=== PATIENT | male | born 1965 | race Two or more races ===

== ENCOUNTER 2016-07-14 10:39 | Inpatient (IN) | payer MEDICAID ==
[~2016-07-14] VITALS: Ht 172.7 cm; Wt 68.3 kg
[2016-07-14 14:19] LABS: Basophils # (auto) 0 uL; Basophils % (auto) 0.4 % (0.0-2.0); Eosinophils # (auto) 0.1 uL; Eosinophils % (auto) 1.8 % (0.0-7.0); Hematocrit 41.1 % (41.0-53.0); Hemoglobin 14.1 g/dL (13.5-17.5); Lymphocytes % (auto) 17.5 % (10.0-50.0); Mean Corpuscular Hgb Conc. 34.4 g/dL (32.0-36.0); Mean Corpuscular Volume 84.1 fL (80.0-100.0); Mean Platelet Volume 8.4 fL (7.4-10.4); Monocytes # (auto) 0.4 uL; Monocytes % (auto) 6.9 % (0.0-12.0); Neutrophils # (auto) 4.4 uL; Neutrophils % (auto) 73.4 % (37.0-80.0); Platelet Count (auto) 286 10^3/uL (140-450); Red Cell Distribution Width 15.5 % (11.6-16.0)
[2016-07-14 14:31] LABS: INR 0.99 (0.9-1.15); Partial Thromboplastin Time 29.9 sec (22.64-33.71); Prothrombin Time 10.8 sec (9.37-12.3)
[2016-07-14 14:39] LABS: Albumin 3.8 g/dL (3.4-5.0); BUN/Creatinine Ratio 17.2; Bilirubin, Total 0.4 mg/dL (0.2-1.0); Calcium 8.6 mg/dL (8.5-10.1); Total Protein 8.6 g/dL (6.4-8.2)
[2016-07-14 15:18] LABS: Potassium 2.6 mmol/L (3.5-5.1)
[2016-07-14] MEDS ORDERED: POTASSIUM CHL 20 Meq TABLET PO ONE (15:30)
[2016-07-14] MEDS ORDERED: POTASSIUM CHL 20MEQ/100ML 100 ML IV SCH (16:00)
[2016-07-14] MEDS ORDERED: SOD CHL 0.9%/ KCL 20MEQ 1,000 ML IV ONE ×2 (16:30→17:00)
[2016-07-14 16:42] LABS: Urine Bilirubin Negative (Negative); Urine Blood Negative /uL (Negative); Urine Color Yellow (Yellow); Urine Glucose Normal (Normal); Urine Hyaline Cast FEW /lpf (0 - 2); Urine Ketone Negative (Negative); Urine Nitrite Negative (Negative); Urine RBC <1 /hpf (0 - 3); Urine Urobilinogen Normal (Negative); Urine pH 6.5 (5.0-8.0)
[2016-07-14] MEDS ORDERED: SODIUM CHLORIDE 0.9% 1,000 ML IV ONE (17:15)
[2016-07-14] MEDS ORDERED: POTASSIUM CHL 20MEQ/100ML 100 ML IV ONE (17:15)
[2016-07-14] MEDS ORDERED: MORPHINE SULF INJ 2 MG/ML SYRINGE 1ML IV ONE (17:15)
[2016-07-14] MEDS ORDERED: ONDANSETRON HCL 4 MG/2 ML VIAL IV ONE (17:15)
[2016-07-14] MEDS ORDERED: MORPHINE SULF INJ 2 MG/ML SYRINGE 1ML IV PRN (18:15)
[2016-07-14] MEDS ORDERED: HYDROcodone-ACET 5/325MG TAB PO PRN (18:15)
[2016-07-14] MEDS ORDERED: ONDANSETRON HCL 4 MG/2 ML VIAL IV PRN (18:15)
[2016-07-14] MEDS ORDERED: DOCUSATE SOD 100 MG CAP PO PRN (18:15)
[2016-07-14] MEDS ORDERED: TEMAZEPAM 15 MG CAP PO PRN (18:15)
[2016-07-14] MEDS ORDERED: cefTRIAXone 1GM/50ML D5W 50 ML IV ONE (18:45)
[2016-07-14] MEDS ORDERED: NYSTATIN (MOUTH-THROAT) 500,000 UNITS/5 ML SUSP MT ONE (18:45)
[2016-07-14] MEDS ORDERED: diphenhdrAMINE HCL 50 MG/1 ML VL IV ONE (20:15)
[2016-07-14] MEDS: SODIUM CHLOR 0.9% PF (SALINE LOCK) 10ML VIAL IV SCH (20:36)
[2016-07-14 21:05] VITALS: BP 119/75
[2016-07-14] MEDS: NYSTATIN (MOUTH-THROAT) 500,000 UNITS/5 ML SUSP MT SCH (21:48)
[2016-07-14] MEDS: FAMOTIDINE 20 MG TAB PO SCH (21:48)
[2016-07-14] MEDS: metroNIDAZOLE 500MG/100ML 100 ML IV SCH (23:54)
[2016-07-15 05:00] VITALS: BP 123/75
[2016-07-15] MEDS: SODIUM CHLOR 0.9% PF (SALINE LOCK) 10ML VIAL IV SCH ×3 (05:15→21:53)
[2016-07-15] MEDS: metroNIDAZOLE 500MG/100ML 100 ML IV SCH ×3 (05:16→17:48)
[2016-07-15] MEDS: NYSTATIN (MOUTH-THROAT) 500,000 UNITS/5 ML SUSP MT SCH ×4 (05:16→21:53)
[2016-07-15 06:13] LABS: Basophils # (auto) 0 uL; Basophils % (auto) 0.4 % (0.0-2.0); Eosinophils # (auto) 0.1 uL; Hematocrit 34.9 % (41.0-53.0); Hemoglobin 11.9 g/dL (13.5-17.5); Lymphocytes # (auto) 0.8 uL; Lymphocytes % (auto) 23.1 % (10.0-50.0); Mean Corpuscular Hemoglobin 28.7 pg (28.0-32.0); Mean Corpuscular Hgb Conc. 34.2 g/dL (32.0-36.0); Mean Corpuscular Volume 84.1 fL (80.0-100.0); Mean Platelet Volume 8.7 fL (7.4-10.4); Monocytes # (auto) 0.3 uL; Monocytes % (auto) 9.7 % (0.0-12.0); Neutrophils # (auto) 2.2 uL; Neutrophils % (auto) 63.8 % (37.0-80.0); Platelet Count (auto) 233 10^3/uL (140-450); Red Cell Distribution Width 15.6 % (11.6-16.0); White Blood Cell 3.5 10^3/uL (4.4-10.8)
[2016-07-15 06:34] LABS: Albumin 2.9 g/dL (3.4-5.0); Calcium 7.7 mg/dL (8.5-10.1); Potassium 3.1 mmol/L (3.5-5.1)
[2016-07-15 06:40] LABS: Bilirubin, Total 0.2 mg/dL (0.2-1.0); Total Protein 6.8 g/dL (6.4-8.2)
[2016-07-15 08:29] VITALS: BP 122/69
[2016-07-15] MEDS: cefTRIAXone 1GM/50ML D5W 50 ML IV SCH (09:32)
[2016-07-15] MEDS: MULTIPLE VITAMIN TAB PO SCH (09:33)
[2016-07-15] MEDS: FAMOTIDINE 20 MG TAB PO SCH (09:34)
[2016-07-15] MEDS ORDERED: ALUM & MAG HYDROX-SIMETH LIQ(MAALOX) 30 ML PO PRN (11:15)
[2016-07-15] MEDS ORDERED: POTASSIUM CHL 20 Meq TABLET PO ONE (11:15)
[2016-07-15] MEDS ORDERED: ALUM & MAG HYDROX-SIMETH LIQ(MAALOX) 30 ML PO ONE (11:30)
[2016-07-15 13:19] VITALS: BP 125/74
[2016-07-15 16:53] VITALS: BP 116/77
[2016-07-15 20:00] VITALS: BP 122/77
[2016-07-15] MEDS: PANTOPRAZOLE 40 MG TAB PO SCH (21:53)
[2016-07-15 22:00] VITALS: BP 122/77
[2016-07-16] MEDS: metroNIDAZOLE 500MG/100ML 100 ML IV SCH ×5 (00:49→23:34)
[2016-07-16 05:00] VITALS: BP 112/77
[2016-07-16] MEDS: SODIUM CHLOR 0.9% PF (SALINE LOCK) 10ML VIAL IV SCH ×3 (06:24→21:55)
[2016-07-16] MEDS: NYSTATIN (MOUTH-THROAT) 500,000 UNITS/5 ML SUSP MT SCH ×4 (06:24→21:55)
[2016-07-16 06:36] LABS: Basophils # (auto) 0 uL; Basophils % (auto) 0.7 % (0.0-2.0); Eosinophils # (auto) 0.2 uL; Eosinophils % (auto) 6.7 % (0.0-7.0); Hematocrit 34.8 % (41.0-53.0); Hemoglobin 11.9 g/dL (13.5-17.5); Lymphocytes # (auto) 0.7 uL; Lymphocytes % (auto) 30.8 % (10.0-50.0); Mean Corpuscular Hemoglobin 28.4 pg (28.0-32.0); Mean Corpuscular Hgb Conc. 34.3 g/dL (32.0-36.0); Mean Platelet Volume 8.5 fL (7.4-10.4); Monocytes # (auto) 0.3 uL; Monocytes % (auto) 12.6 % (0.0-12.0); Neutrophils # (auto) 1.1 uL; Neutrophils % (auto) 49.2 % (37.0-80.0); Platelet Count (auto) 227 10^3/uL (140-450); Red Cell Distribution Width 15.7 % (11.6-16.0); White Blood Cell 2.3 10^3/uL (4.4-10.8)
[2016-07-16 07:04] LABS: BUN/Creatinine Ratio 10.8; Potassium 3.3 mmol/L (3.5-5.1)
[2016-07-16] MEDS: PANTOPRAZOLE 40 MG TAB PO SCH ×2 (08:23→21:55)
[2016-07-16] MEDS: MULTIPLE VITAMIN TAB PO SCH (08:23)
[2016-07-16] MEDS: cefTRIAXone 1GM/50ML D5W 50 ML IV SCH (08:23)
[2016-07-16 09:18] VITALS: BP 113/72
[2016-07-16 12:30] VITALS: BP 114/71
[2016-07-16] MEDS ORDERED: GOLYTELY 4L KIT PO ONE (15:00)
[2016-07-16 16:42] VITALS: BP 117/67
[2016-07-16 22:00] VITALS: BP 122/80
[2016-07-17 05:00] VITALS: BP 114/84
[2016-07-17] MEDS: metroNIDAZOLE 500MG/100ML 100 ML IV SCH ×4 (05:44→23:30)
[2016-07-17] MEDS: SODIUM CHLOR 0.9% PF (SALINE LOCK) 10ML VIAL IV SCH ×3 (05:44→21:52)
[2016-07-17] MEDS: NYSTATIN (MOUTH-THROAT) 500,000 UNITS/5 ML SUSP MT SCH ×4 (05:45→21:52)
[2016-07-17] MEDS ORDERED: SODIUM CHLORIDE LOCK 10 ML ONE (08:23)
[2016-07-17] MEDS ORDERED: MIDAZOLAM HCL 5 MG/ML-1ML VIAL ONE (08:24)
[2016-07-17] MEDS ORDERED: fentaNYL CITRATE 100 MCG/2 ML VL ONE (08:24)
[2016-07-17] MEDS ORDERED: diphenhdrAMINE HCL 50 MG/1 ML VL ONE (08:24)
[2016-07-17 09:00] VITALS: BP 121/79
[2016-07-17] MEDS: cefTRIAXone 1GM/50ML D5W 50 ML IV SCH (09:00)
[2016-07-17] MEDS: BOOST PLUS 8 ounce PO SCH ×2 (14:00→21:53)
[2016-07-17 17:00] VITALS: BP 128/90
[2016-07-17] MEDS: MULTIPLE VITAMIN TAB PO SCH (18:46)
[2016-07-17] MEDS: PANTOPRAZOLE 40 MG TAB PO SCH ×2 (18:46→21:52)
[2016-07-17 20:00] VITALS: BP 125/76
[2016-07-17 22:00] VITALS: BP 125/76
[2016-07-18] VITALS (7 sets, daily range): BP systolic 115–128; BP diastolic 57–83
[2016-07-18] MEDS: NYSTATIN (MOUTH-THROAT) 500,000 UNITS/5 ML SUSP MT SCH ×5 (05:34→22:00)
[2016-07-18] MEDS: metroNIDAZOLE 500MG/100ML 100 ML IV SCH ×4 (05:34→23:36)
[2016-07-18] MEDS: BOOST PLUS 8 ounce PO SCH ×3 (05:34→22:14)
[2016-07-18] MEDS: SODIUM CHLOR 0.9% PF (SALINE LOCK) 10ML VIAL IV SCH ×3 (05:34→22:14)
[2016-07-18 07:14] LABS: Basophils # (auto) 0 uL; Basophils % (auto) 0.6 % (0.0-2.0); Eosinophils # (auto) 0.2 uL; Eosinophils % (auto) 7.5 % (0.0-7.0); Hematocrit 34.3 % (41.0-53.0); Hemoglobin 11.7 g/dL (13.5-17.5); Lymphocytes # (auto) 0.7 uL; Lymphocytes % (auto) 30.2 % (10.0-50.0); Mean Corpuscular Hemoglobin 28.8 pg (28.0-32.0); Mean Corpuscular Hgb Conc. 34.2 g/dL (32.0-36.0); Mean Corpuscular Volume 84.1 fL (80.0-100.0); Mean Platelet Volume 8.6 fL (7.4-10.4); Monocytes # (auto) 0.3 uL; Monocytes % (auto) 11.3 % (0.0-12.0); Neutrophils # (auto) 1.2 uL; Neutrophils % (auto) 50.4 % (37.0-80.0); Platelet Count (auto) 228 10^3/uL (140-450); Red Cell Distribution Width 15.6 % (11.6-16.0); White Blood Cell 2.4 10^3/uL (4.4-10.8)
[2016-07-18 07:19] LABS: BUN/Creatinine Ratio 12.2; Calcium 7.9 mg/dL (8.5-10.1); Potassium 3.1 mmol/L (3.5-5.1)
[2016-07-18] MEDS: MULTIPLE VITAMIN TAB PO SCH (09:58)
[2016-07-18] MEDS: PANTOPRAZOLE 40 MG TAB PO SCH (09:58)
[2016-07-18] MEDS: cefTRIAXone 1GM/50ML D5W 50 ML IV SCH (09:58)
[2016-07-18] MEDS ORDERED: POTASSIUM CHL 20 Meq TABLET PO ONE ×2 (12:45→19:00)
[2016-07-18] MEDS: DIPHENOXYLATE W/ATROPINE 2.5 MG TAB PO PRN ×2 (17:40→22:13)
[2016-07-18] MEDS: ACETAMINOPHEN 325 MG TAB PO PRN ×2 (17:42→22:13)
[2016-07-19 05:00] VITALS: BP 108/70
[2016-07-19] MEDS: NYSTATIN (MOUTH-THROAT) 500,000 UNITS/5 ML SUSP MT SCH ×2 (05:14→11:57)
[2016-07-19] MEDS: metroNIDAZOLE 500MG/100ML 100 ML IV SCH ×2 (05:14→11:57)
[2016-07-19] MEDS: SODIUM CHLOR 0.9% PF (SALINE LOCK) 10ML VIAL IV SCH ×2 (05:14→14:00)
[2016-07-19] MEDS: BOOST PLUS 8 ounce PO SCH ×2 (06:08→14:00)
[2016-07-19 06:37] LABS: Basophils # (auto) 0 uL; Basophils % (auto) 0.7 % (0.0-2.0); Eosinophils # (auto) 0.2 uL; Eosinophils % (auto) 8.6 % (0.0-7.0); Hematocrit 34.7 % (41.0-53.0); Hemoglobin 11.9 g/dL (13.5-17.5); Lymphocytes # (auto) 0.8 uL; Lymphocytes % (auto) 30.8 % (10.0-50.0); Mean Corpuscular Hemoglobin 28.7 pg (28.0-32.0); Mean Corpuscular Hgb Conc. 34.2 g/dL (32.0-36.0); Mean Corpuscular Volume 83.8 fL (80.0-100.0); Mean Platelet Volume 8.6 fL (7.4-10.4); Monocytes # (auto) 0.3 uL; Monocytes % (auto) 10.3 % (0.0-12.0); Neutrophils # (auto) 1.2 uL; Neutrophils % (auto) 49.6 % (37.0-80.0); Platelet Count (auto) 220 10^3/uL (140-450); Red Cell Distribution Width 16.1 % (11.6-16.0); White Blood Cell 2.5 10^3/uL (4.4-10.8)
[2016-07-19 07:01] LABS: BUN/Creatinine Ratio 10.3; Calcium 7.7 mg/dL (8.5-10.1); Potassium 3.7 mmol/L (3.5-5.1)
[2016-07-19 07:30] VITALS: BP 114/72
[2016-07-19] MEDS ORDERED: FAMOTIDINE 20 MG TAB PO SCH (10:00)
[2016-07-19] MEDS: MULTIPLE VITAMIN TAB PO SCH (10:02)
[2016-07-19] MEDS: cefTRIAXone 1GM/50ML D5W 50 ML IV SCH (10:02)
[2016-07-19 11:26] VITALS: BP 113/58
[2016-07-19] MEDS: ACETAMINOPHEN 325 MG TAB PO PRN (15:51)
[2016-07-19 16:21] VITALS: BP 132/69
== END 2016-07-19 17:20 | disposition home or self-care (01) | DRG 892 ==
LOC: ER 10:44 → OVERFLOW 10:45 → WEST WING 20:57 → OVERFLOW 20:57 → WEST WING 21:05
PROVIDERS: ADMIT Internal Medicine; ATTEND Family Medicine
PROC: 0DBE8ZX Excision of Large Intestine, Via Natural or Artificial Opening Endoscopic, Diagnostic (ICD-10-PCS; 2016-07-17)
PROC: 0DBP8ZX Excision of Rectum, Via Natural or Artificial Opening Endoscopic, Diagnostic (ICD-10-PCS; principal; 2016-07-17 13:55)
DX: B20 Human immunodeficiency virus [HIV] disease (principal); R65.10 Systemic inflammatory response syndrome (SIRS) of non-infectious origin without acute organ dysfunction; J84.10 Pulmonary fibrosis, unspecified; E87.1 Hypo-osmolality and hyponatremia; K22.2 Esophageal obstruction; K86.89 Other specified diseases of pancreas; B37.9 Candidiasis, unspecified; E87.6 Hypokalemia; D72.819 Decreased white blood cell count, unspecified; N18.2 Chronic kidney disease, stage 2 (mild); K52.9 Noninfective gastroenteritis and colitis, unspecified; Z83.3 Family history of diabetes mellitus; J02.9 Acute pharyngitis, unspecified; Z88.1 Allergy status to other antibiotic agents
CPT/HCPCS: 36415; 45380; 70360; 71020; 74176; 80048; 80053; 81001; 85025; 85610; 85730; 87045; 87070; 87081; 87177; 87493; 87899; 93005; 94761; 96361; 96365; 96375; J0696; J2250; J2405; J3480; J3490

== ENCOUNTER 2016-08-29 16:22 | Inpatient (IN) | payer MEDICAID ==
[~2016-08-29] VITALS: Ht 167.6 cm; Wt 67.0 kg
[2016-08-29 17:28] LABS: Basophils # (auto) 0 uL; Basophils % (auto) 0.2 % (0.0-2.0); CONDITION Y; Eosinophils # (auto) 0.1 uL; Eosinophils % (auto) 1.9 % (0.0-7.0); Hematocrit 33.9 % (41.0-53.0); Hemoglobin 11.5 g/dL (13.5-17.5); Lymphocytes # (auto) 0.5 uL; Mean Corpuscular Hemoglobin 29.3 pg (28.0-32.0); Mean Corpuscular Hgb Conc. 34.1 g/dL (32.0-36.0); Monocytes # (auto) 0.6 uL; Monocytes % (auto) 9.1 % (0.0-12.0); Neutrophils # (auto) 5.4 uL; Neutrophils % (auto) 81.8 % (37.0-80.0); Platelet Count (auto) 327 10^3/uL (140-450); Red Cell Distribution Width 16.5 % (11.6-16.0); White Blood Cell 6.6 10^3/uL (4.4-10.8)
[2016-08-29 17:54] LABS: Albumin 3.6 g/dL (3.4-5.0); BUN/Creatinine Ratio 14.4; Bilirubin, Total 0.3 mg/dL (0.2-1.0); Calcium 8.2 mg/dL (8.5-10.1); Total Protein 7.8 g/dL (6.4-8.2)
[2016-08-29 17:56] LABS: Potassium 2.5 mmol/L (3.5-5.1)
[2016-08-29] MEDS ORDERED: POTASSIUM CHL 10% (20 MEQ/15ML) ORAL SOLN PO ONE (18:45)
[2016-08-29] MEDS ORDERED: SODIUM CHLORIDE 0.9% 1,000 ML IV ONE (18:45)
[2016-08-29] MEDS ORDERED: SOD CHL 0.9%/ KCL 40MEQ 1,000 ML IV SCH (19:30)
[2016-08-29] MEDS ORDERED: PROMETHAZINE HCL 25 MG/ML 1ML IV PRN (19:30)
[2016-08-29] MEDS ORDERED: MORPHINE SULFATE 4 MG/ML SYRG IV PRN ×2 (19:30)
[2016-08-29] MEDS ORDERED: NITROGLYCERIN 0.4 MG SL TAB SL PRN (19:30)
[2016-08-29] MEDS ORDERED: POTASSIUM CHL 20MEQ/100ML 100 ML IV SCH (19:30)
[2016-08-29] MEDS ORDERED: LEVOFLOXACIN 500MG 100 ML IV ONE (19:30)
[2016-08-29] MEDS ORDERED: ACETAMINOPHEN 500 MG TAB PO PRN (19:30)
[2016-08-29] MEDS ORDERED: TEMAZEPAM 15 MG CAP PO PRN (19:30)
[2016-08-29] MEDS ORDERED: NYSTATIN (MOUTH-THROAT) 500,000 UNITS/5 ML SUSP MT ONE (19:30)
[2016-08-29] MEDS ORDERED: POTASSIUM CHL 20 Meq TABLET PO ONE (19:30)
[2016-08-29] MEDS ORDERED: LORazepam 0.5 MG TAB PO PRN (19:30)
[2016-08-29] MEDS ORDERED: THIAMINE HCL 100 MG/ML 2ML VIAL IV ONE (19:45)
[2016-08-29] MEDS ORDERED: chlordiazePOXIDE HCL 25 MG CAP PO PRN (19:45)
[2016-08-29] MEDS: POTASSIUM CHL 20MEQ/100ML 100 ML IV SCH ×2 (20:27→22:30)
[2016-08-29] MEDS: FAMOTIDINE (10MG/ML) 2ML VL IV SCH (21:06)
[2016-08-29] MEDS ORDERED: NYSTATIN (MOUTH-THROAT) 500,000 UNITS/5 ML SUSP MT SCH (22:00)
[2016-08-29 23:40] VITALS: BP 128/85
[2016-08-29 23:52] LABS: Urine RBC None Seen /hpf (0 - 3)
[2016-08-30 00:08] LABS: Urine Bilirubin Negative (Negative); Urine Blood Negative /uL (Negative); Urine Color Yellow (Yellow); Urine Glucose Normal (Normal); Urine Ketone Negative (Negative); Urine Nitrite Negative (Negative); Urine Urobilinogen Normal (Negative); Urine pH 6.5 (5.0-8.0)
[2016-08-30 04:59] VITALS: BP 108/68
[2016-08-30] MEDS: chlordiazePOXIDE HCL 5 MG CAP PO SCH ×5 (06:17→23:41)
[2016-08-30 06:39] LABS: Basophils # (auto) 0 uL; Basophils % (auto) 0.1 % (0.0-2.0); CONDITION Y; Eosinophils # (auto) 0.2 uL; Eosinophils % (auto) 4.4 % (0.0-7.0); Hematocrit 31.3 % (41.0-53.0); Hemoglobin 10.6 g/dL (13.5-17.5); Lymphocytes # (auto) 0.4 uL; Lymphocytes % (auto) 8.3 % (10.0-50.0); Mean Corpuscular Hemoglobin 29.3 pg (28.0-32.0); Mean Corpuscular Hgb Conc. 33.7 g/dL (32.0-36.0); Mean Platelet Volume 8.2 fL (7.4-10.4); Monocytes # (auto) 0.3 uL; Monocytes % (auto) 7.6 % (0.0-12.0); Neutrophils # (auto) 3.4 uL; Neutrophils % (auto) 79.6 % (37.0-80.0); Platelet Count (auto) 255 10^3/uL (140-450); Red Cell Distribution Width 16.8 % (11.6-16.0); White Blood Cell 4.2 10^3/uL (4.4-10.8)
[2016-08-30 06:55] LABS: Albumin 2.8 g/dL (3.4-5.0); Calcium 7.1 mg/dL (8.5-10.1)
[2016-08-30 06:57] LABS: BUN/Creatinine Ratio 14.7
[2016-08-30 07:04] LABS: Bilirubin, Total 0.3 mg/dL (0.2-1.0); Total Protein 6.6 g/dL (6.4-8.2)
[2016-08-30 09:00] VITALS: BP 100/63
[2016-08-30 13:00] VITALS: BP 105/69
[2016-08-30] MEDS: THIAMINE HCL 100 MG/ML 2ML VIAL IV SCH (14:38)
[2016-08-30] MEDS: FAMOTIDINE (10MG/ML) 2ML VL IV SCH ×2 (14:38→19:46)
[2016-08-30] MEDS: POTASSIUM CHL 20MEQ/100ML 100 ML IV SCH ×3 (16:29→19:27)
[2016-08-30] MEDS: SODIUM BICARBONATE 50ML VIAL 150 ML in D5W 5% 1,000 ML IV SCH (16:30)
[2016-08-30] MEDS: POTASSIUM CHL 20 Meq TABLET PO SCH ×2 (16:30→18:19)
[2016-08-30 17:00] VITALS: BP 111/74
[2016-08-30 21:37] VITALS: BP 106/67
[2016-08-31] VITALS (7 sets, daily range): BP systolic 95–111; BP diastolic 57–89
[2016-08-31] MEDS: HYDROcodone-ACET 5/325MG TAB PO PRN ×2 (00:31→17:24)
[2016-08-31] MEDS: SODIUM BICARBONATE 50ML VIAL 150 ML in D5W 5% 1,000 ML IV SCH (03:33)
[2016-08-31 05:20] LABS: Basophils # (auto) 0 uL; Basophils % (auto) 0.2 % (0.0-2.0); CONDITION Y; Eosinophils # (auto) 0.3 uL; Hematocrit 28.8 % (41.0-53.0); Hemoglobin 9.9 g/dL (13.5-17.5); Lymphocytes # (auto) 0.4 uL; Lymphocytes % (auto) 9.8 % (10.0-50.0); Mean Corpuscular Hemoglobin 29.3 pg (28.0-32.0); Mean Corpuscular Hgb Conc. 34.2 g/dL (32.0-36.0); Mean Corpuscular Volume 85.8 fL (80.0-100.0); Mean Platelet Volume 7.8 fL (7.4-10.4); Monocytes # (auto) 0.3 uL; Monocytes % (auto) 8.9 % (0.0-12.0); Neutrophils # (auto) 2.8 uL; Neutrophils % (auto) 72.1 % (37.0-80.0); Platelet Count (auto) 269 10^3/uL (140-450); Red Cell Distribution Width 16.9 % (11.6-16.0); White Blood Cell 3.9 10^3/uL (4.4-10.8)
[2016-08-31 05:44] LABS: BUN/Creatinine Ratio 10.2; Calcium 7.4 mg/dL (8.5-10.1); Magnesium 1.6 mg/dL (1.6-2.6); Phosphorus 2.3 mg/dL (2.5-4.90)
[2016-08-31 05:50] LABS: Potassium 2.7 mmol/L (3.5-5.1)
[2016-08-31] MEDS: chlordiazePOXIDE HCL 5 MG CAP PO SCH ×3 (05:59→19:45)
[2016-08-31] MEDS ORDERED: POTASSIUM CHL 20 Meq TABLET PO ONE ×4 (06:30→10:15)
[2016-08-31] MEDS ORDERED: SOD CHL 0.9%/ KCL 20MEQ 1,000 ML IV ONE (06:30)
[2016-08-31] MEDS: THIAMINE HCL 100 MG/ML 2ML VIAL IV SCH (09:47)
[2016-08-31] MEDS: FAMOTIDINE (10MG/ML) 2ML VL IV SCH ×2 (09:47→20:09)
[2016-08-31 17:01] LABS: BUN/Creatinine Ratio 7.8; Calcium 7.6 mg/dL (8.5-10.1); Potassium 3.6 mmol/L (3.5-5.1)
[2016-09-01] MEDS: chlordiazePOXIDE HCL 5 MG CAP PO SCH ×3 (00:07→11:16)
[2016-09-01] MEDS: HYDROcodone-ACET 5/325MG TAB PO PRN ×3 (00:21→14:36)
[2016-09-01 05:01] VITALS: BP 104/61
[2016-09-01 05:38] LABS: Basophils # (auto) 0 uL; Basophils % (auto) 0.3 % (0.0-2.0); CONDITION Y; Eosinophils # (auto) 0.3 uL; Eosinophils % (auto) 7.3 % (0.0-7.0); Hematocrit 31.5 % (41.0-53.0); Hemoglobin 10.6 g/dL (13.5-17.5); Lymphocytes # (auto) 0.5 uL; Lymphocytes % (auto) 11.8 % (10.0-50.0); Mean Corpuscular Hemoglobin 29.3 pg (28.0-32.0); Mean Corpuscular Hgb Conc. 33.7 g/dL (32.0-36.0); Mean Corpuscular Volume 86.8 fL (80.0-100.0); Mean Platelet Volume 7.9 fL (7.4-10.4); Monocytes # (auto) 0.4 uL; Monocytes % (auto) 7.7 % (0.0-12.0); Neutrophils # (auto) 3.3 uL; Neutrophils % (auto) 72.9 % (37.0-80.0); Platelet Count (auto) 295 10^3/uL (140-450); Red Cell Distribution Width 17.4 % (11.6-16.0); White Blood Cell 4.6 10^3/uL (4.4-10.8)
[2016-09-01 06:08] LABS: Calcium 7.5 mg/dL (8.5-10.1); Potassium 3.5 mmol/L (3.5-5.1)
[2016-09-01 06:12] LABS: BUN/Creatinine Ratio 9.6
[2016-09-01] MEDS: FAMOTIDINE (10MG/ML) 2ML VL IV SCH (06:59)
[2016-09-01 09:00] VITALS: BP 94/59
[2016-09-01] MEDS: THIAMINE HCL 100 MG/ML 2ML VIAL IV SCH (11:16)
[2016-09-01 13:00] VITALS: BP 97/58
[2016-09-01 14:27] VITALS: BP 97/58
== END 2016-09-01 14:25 | disposition home or self-care (01) | DRG 249 ==
LOC: ER 16:26 → TELE 16:27 → TELE-WESTW 23:18
PROVIDERS: ADMIT Internal Medicine; ATTEND Internal Medicine
DX: K52.9 Noninfective gastroenteritis and colitis, unspecified (principal); N17.9 Acute kidney failure, unspecified; B37.0 Candidal stomatitis; E46 Unspecified protein-calorie malnutrition; E87.2 Acidosis; E87.1 Hypo-osmolality and hyponatremia; B00.9 Herpesviral infection, unspecified; E86.0 Dehydration; F17.200 Nicotine dependence, unspecified, uncomplicated; E87.8 Other disorders of electrolyte and fluid balance, not elsewhere classified; E87.6 Hypokalemia; Z68.23 Body mass index [BMI] 23.0-23.9, adult; Z82.49 Family history of ischemic heart disease and other diseases of the circulatory system; Z83.3 Family history of diabetes mellitus; Z88.1 Allergy status to other antibiotic agents
CPT/HCPCS: 36415; 71010; 80048; 80053; 81001; 82150; 83690; 83735; 84100; 85025; 85652; 86141; 87045; 87070; 87177; 87205; 87493; 87899; 93005; 96374; 96375; 99291; J1956; J3480; J3490